=== PATIENT | male | born 1980 | race Caucasian/White ===

== ENCOUNTER → 2016-08-27 | Outpatient (CLI) | payer BC ==
[~2016-08-27] MED LIST: ADV1DS; ALBU17AE3
--- NOTE | 2016-08-27 11:01 | Diagnostic Imaging Report ---
EXAMINATION: Left lower extremity duplex venous ultrasound. TECHNIQUE: DVT protocol. Multiple sonographic images with color Doppler and waveform interrogation were performed of the left lower extremity veins with compression and augmentation maneuvers. INDICATION: Left leg pain. FINDINGS: The left lower extremity veins from the groin to below the knee veins were examined with normal color-flow, compressibility and waveform demonstrated. The great saphenous vein is patent. IMPRESSION: No evidence of DVT in the left lower extremity. Dictated by: Dictated on workstation # [id number]
== END ==
LOC: RAD 10:22
PROVIDERS: ATTEND Family Medicine
DX: M79.662 Pain in left lower leg (principal)

== ENCOUNTER → 2017-12-25 | Outpatient (CLI) | payer BC ==
--- NOTE | 2017-12-25 17:30 | Diagnostic Imaging Report ---
INDICATION: Pelvic pain. FINDINGS: AP pelvis and two-view right hip reveal no fracture, dislocation, avulsion, or acute-appearing bony abnormality. No symphyseal or SI joint diastasis. Visualized pelvic bowel gas pattern unremarkable. IMPRESSION: No acute-appearing abnormality. Dictated by: Dictated on workstation # [id number]
== END ==
LOC: RAD 15:12
PROVIDERS: ATTEND Nurse Practitioner Family
DX: R10.2 Pelvic and perineal pain (principal); M54.30 Sciatica, unspecified side

== ENCOUNTER 2018-03-02 11:26 | Emergency (ER) | payer BC ==
[~2018-03-02] VITALS: Ht 180.3 cm; Wt 127.0 kg
[2018-03-02] MEDS ORDERED: KETOROLAC 60 MG/2 ML VIAL IM ONE (12:15)
[2018-03-02] MEDS ORDERED: ORPHENADRINE 60 MG/2 ML (NORFLEX) AMP IM ONE (12:15)
[2018-03-02] MEDS ORDERED: oxyCODONE/APAP 5/325MG (PERCOCET 5) TABLET PO ONE (12:15)
[2018-03-02] MEDS ORDERED: OXYC1TAB87 PO (12:21)
--- NOTE | 2018-03-02 12:21 | ED Back Pain ---
General Chief Complaint: Back Problems Stated Complaint: BACK PAIN,BARELY WALK LEGS GOING NUMB Source of Information: Patient Exam Limitations: No Limitations History of Present Illness Date Seen by Provider: Mar 02, 2018 Time Seen by Provider: 12:18 Initial Comments To ER by with insidious onset of left low back pain that radiates down the left leg about 2-3 months ago. He's been seeing Dr. Lenny Sinclair, he's been doing ibuprofen at home which does help temporarily. He's taken a course of prednisone which helped temporarily as well. He's been to for physical therapy treatments. This morning he woke up with worsening pain that he couldn't stand. He denies fevers or chills, no IV drug use, no loss of sensation of the genitals , no loss of bowel or bladder control. He denies any preceding trauma or injury. Location: Lumbar Spine Timing/Duration: Getting Worse, Other (2-3 months) Severity: Severe Pain/Injury Location: Back Radiation: Upper Legs (left leg) Associated Symptoms: numbness in legs/feet, tingling in legs/feet, lower back pain Allergies and Home Medications Allergies Coded Allergies: No Known Allergies (Verified Allergy, Unknown, 05/16/07) Home Medications Oxycodone HCl/Acetaminophen 1 Each Tablet, 1 EACH PO Q4H PRN for PAIN-MODERATE Prescribed by: KENNEY NAVARRO on 03/02/18 1221 Patient Home Medication List Home Medication List Reviewed: Yes Review of Systems Constitutional: see HPI; No chills, No fever EENTM: see HPI Respiratory: no symptoms reported Cardiovascular: no symptoms reported Genitourinary: no symptoms reported Musculoskeletal: see HPI, back pain Skin: no symptoms reported Psychiatric/Neurological: No Symptoms Reported Past Gevadgp-Prpahm-Yhtwjz Hx Patient Social History Recent Foreign Travel: No Contact w/Someone Who Travel: No Past Medical History Reproductive Disorders: No Physical Exam Vital Signs Vital Signs - First Documented 03/02/18 12:09 Temp 98.4 Pulse 77 Resp 12 B/P (MAP) 123/66 (85) Pulse Ox 97 O2 Delivery Room Air Capillary Refill : Height, Weight, BMI Height: '" Weight: lbs. oz. kg; BMI Method: General Appearance: No Apparent Distress, WD/WN, Obese, Other (walks slowly with antalgic gait) HEENT: PERRL/EOMI, TMs Normal Cardiovascular: Regular Rate, Rhythm, Normal Peripheral Pulses Respiratory: Normal Breath Sounds, No Accessory Muscle Use, No Respiratory Distress Gastrointestinal: Normal Bowel Sounds, Non Tender, Soft Back: Normal Inspection Extremity: Normal Capillary Refill, Normal Inspection Neurologic/Psychiatric: Alert, Oriented x3, No Motor/Sensory Deficits Skin: Normal Color, Warm/Dry Progress/Results/Core Measures Results/Orders My Orders Orders - KENNEY NAVARRO APRN Ct Lumbar Spine Wo (03/02/18 12:14) Orphenadrine Injection (Norflex Injectio (03/02/18 12:15) Ketorolac Injection (Toradol Injection) (03/02/18 12:15) Oxycodone/Apap 5/325mg Tablet (Percocet (03/02/18 12:15) Medications Given in ED Current Medications Medications Dose Ordered Sig/Iram Route Start Time Stop Time Status Last Admin Dose Admin Ketorolac Tromethamine 60 mg ONCE ONCE IM 03/02/18 12:15 03/02/18 12:17 DC 03/02/18 12:53 60 MG Orphenadrine Citrate 60 mg ONCE ONCE IM 03/02/18 12:15 03/02/18 12:17 DC 03/02/18 12:52 60 MG Vital Signs/I&O 03/02/18 12:09 Temp 98.4 Pulse 77 Resp 12 B/P (MAP) 123/66 (85) Pulse Ox 97 O2 Delivery Room Air Diagnostic Imaging Diagonstic Imaging: CT Comments NAME: PRUDENCIO MAJANO [facility] REC#: [id number] PT STATUS: REG ER : 1980 PHYSICIAN: KENNEY NAVARRO APRN ADMIT DATE: 03/02/18/ER Draft Date of Exam:03/02/18 CT LUMBAR SPINE WO PROCEDURE: CT lumbar spine without contrast. TECHNIQUE: Multiple contiguous axial images were obtained through the lumbar spine without the use of intravenous contrast. Sagittal and coronal reformations were then performed. INDICATION: Back pain. Right lower extremity pain. Patient reports pain times several months. No comparison available. FINDINGS: Alignment of the lumbar spine appears within normal limits. Vertebral body heights are maintained. The facets are normally aligned. There is minimal loss of disc space height at L5-S1. Disc spaces otherwise appear relatively well preserved. There are no findings of an acute fracture. There is no suspicious marrow replacing lesion. There is no significant lower thoracic canal stenosis. Within the lumbar spine, there appears to be mild narrowing of the central canal due to facet hypertrophy and disc bulging at L3-L4. There is moderate central canal stenosis and moderate to severe narrowing of the lateral recesses at L4-L5 due to facet arthropathy and disc bulging. At L5-S1, there also appears to likely be a large right paracentral disc extrusion abutting the right S1 nerve root. No high-grade foraminal stenosis evident. The paraspinal soft tissues unremarkable. There is no retroperitoneal adenopathy. Aorta normal in caliber. There are nonobstructive calculi within both kidneys. There is no hydronephrosis. IMPRESSION: 1. Normal height and alignment of lumbar spine without evidence of an acute osseous abnormality 2. Multilevel degenerative disc disease with disc bulges and mild lower facet arthropathy. Most advanced canal stenosis appears moderate at L4-L5 where there is also moderate to severe lateral recess stenosis. Additionally at L5-S1, there is an appearance of a probable large right paracentral disc extrusion abutting the right S1 nerve root. These findings could be further assessed with MRI if the patient is clinically able. Dictated on workstation # [id number] Dict: 03/02/18 1241 Trans: 03/02/18 1249 [id number] Interpreted by: DACIA ORR MD Electronically signed by: Departure Impression Primary Impression: Lumbar radiculopathy Disposition: 01 HOME, SELF-CARE Condition: Improved Departure-Patient Inst. Decision time for Depature: 12:20 Referrals: EL MARTÍNEZ BRIAN J MD STEWART, CHAD C MD (PCP/Family) Primary Care Physician Patient Instructions: Radiculopathy (DC) Add. Discharge Instructions: 1. Medication as directed. Take this as infrequently as possible, this can be addicting. 2. Return to ER for any concerns. All discharge instructions reviewed with patient and/or family. Voiced understanding. Scripts Oxycodone HCl/Acetaminophen (Percocet 5-325 mg Tablet) 1 Each Tablet 1 EACH PO Q4H PRN for PAIN-MODERATE MDD 6, #14 TAB Prov: KENNEY NAVARRO [employer]S PROGRAMMER ANALYST 03/02/18 Work/School Note: Work Release Form Date Seen in the Emergency Department: Mar 02, 2018 Return to Work: Mar 05, 2018 Copy Copies To 1: LENNY SINCLAIR MD, PETER J APRN Mar 02, 2018 12:21
--- NOTE | 2018-03-02 12:49 | Diagnostic Imaging Report ---
PROCEDURE: CT lumbar spine without contrast. TECHNIQUE: Multiple contiguous axial images were obtained through the lumbar spine without the use of intravenous contrast. Sagittal and coronal reformations were then performed. INDICATION: Back pain. Right lower extremity pain. Patient reports pain times several months. No comparison available. FINDINGS: Alignment of the lumbar spine appears within normal limits. Vertebral body heights are maintained. The facets are normally aligned. There is minimal loss of disc space height at L5-S1. Disc spaces otherwise appear relatively well preserved. There are no findings of an acute fracture. There is no suspicious marrow replacing lesion. There is no significant lower thoracic canal stenosis. Within the lumbar spine, there appears to be mild narrowing of the central canal due to facet hypertrophy and disc bulging at L3-L4. There is moderate central canal stenosis and moderate to severe narrowing of the lateral recesses at L4-L5 due to facet arthropathy and disc bulging. At L5-S1, there also appears to likely be a large right paracentral disc extrusion abutting the right S1 nerve root. No high-grade foraminal stenosis evident. The paraspinal soft tissues unremarkable. There is no retroperitoneal adenopathy. Aorta normal in caliber. There are nonobstructive calculi within both kidneys. There is no hydronephrosis. IMPRESSION: 1. Normal height and alignment of lumbar spine without evidence of an acute osseous abnormality 2. Multilevel degenerative disc disease with disc bulges and mild lower facet arthropathy. Most advanced canal stenosis appears moderate at L4-L5 where there is also moderate to severe lateral recess stenosis. Additionally at L5-S1, there is an appearance of a probable large right paracentral disc extrusion abutting the right S1 nerve root. These findings could be further assessed with MRI if the patient is clinically able. Dictated by: Dictated on workstation # [id number]
[2018-03-02 13:18] VITALS: BP 123/66
== END 2018-03-02 13:18 | disposition home or self-care (01) ==
LOC: EDUNIT# 11:26 → ER 11:27
DX: M54.16 Radiculopathy, lumbar region (principal)
CPT/HCPCS: 72131; 96372

== ENCOUNTER → 2018-03-05 | Outpatient (CLI) | payer BC ==
[~2018-03-05] MED LIST changes: +OXYC1TAB87 PO
--- NOTE | 2018-03-05 14:39 | Diagnostic Imaging Report ---
PROCEDURE: MRI lumbar spine. TECHNIQUE: Multiplanar, multisequence MRI of the lumbar spine was performed without contrast. INDICATION: Back injury approximately three months ago with continued pain and right leg pain and burning off and on. No prior studies are available for comparison. Curvature and alignment of the lumbar spine is normal. Vertebral body heights are maintained. No acute compression fracture or geographic marrow lesion is seen. There is fairly normal height and signal intensity to the lumbar discs apart from mild disc space narrowing at the L4-L5 and L5-S1 levels as well as mild desiccation. The conus is unremarkable at the T12-L1 level. T12-L1: No central canal or neural foraminal stenosis is identified. L1-L2: Unremarkable. L2-L3: Unremarkable. L3-L4: There is minimal annular bulging with flattening of the ventral thecal sac. Central canal remains patent. There is mild narrowing of the neural foramina bilaterally. L4-L5: Broad-based annular bulging is present indenting the ventral thecal sac. There is some mild narrowing of the central canal. There is moderate narrowing of the lateral recesses bilaterally as well as mild bilateral neural foraminal narrowing. There are degenerative changes to the facets. L5-S1: There is a large wide based right paracentral/posterolateral disc protrusion. This disc is present a 12 mm transverse dimension by 8 mm AP. This does efface the right lateral recess and likely impinges upon the right S1 nerve root origin. No significant neural foramina narrowing is seen. There is some mild central canal narrowing. Paraspinous tissues are unremarkable. IMPRESSION: Lumbar spondylosis with central canal, neural foraminal or lateral recess narrowing described level by level above. There is a large right paracentral wide-based disc protrusion at L5-S1 producing impingement on the right S1 nerve root origin. Dictated by: Dictated on workstation # [id number]
== END ==
LOC: RAD 12:45
PROVIDERS: ATTEND Nurse Practitioner Family
DX: S39.92XA Unspecified injury of lower back, initial encounter (principal); M51.17 Intervertebral disc disorders with radiculopathy, lumbosacral region; M48.07 Spinal stenosis, lumbosacral region; M47.816 Spondylosis without myelopathy or radiculopathy, lumbar region; M99.73 Connective tissue and disc stenosis of intervertebral foramina of lumbar region
CPT/HCPCS: 72148

== ENCOUNTER 2019-12-16 12:42 | Outpatient (CLI) | payer BC | END 2019-12-16 12:54 | disposition home or self-care (01) | LOC: SLEEP 12:42 | PROVIDERS: ATTEND Otolaryngology Otolaryngology/Facial Plastic Surgery | DX: G47.33 Obstructive sleep apnea (adult) (pediatric) (principal); G47.10 Hypersomnia, unspecified; I10 Essential (primary) hypertension; D49.2 Neoplasm of unspecified behavior of bone, soft tissue, and skin ==